=== PATIENT | male | born 2005 | race Native Hawaiian/Other Pacific Islander ===

== ENCOUNTER 2024-04-25 10:34 | Emergency (ER) | payer OTHER ==
[~2024-04-25] VITALS: Ht 170.2 cm; Wt 74.1 kg
[2024-04-25 10:35] VITALS: BP 132/81; TEMP 98.3; O2SAT 97
[2024-04-25] MEDS ORDERED: CEPH500T PO (11:05)
[2024-04-25 11:55] LABS: BASO % 0.6 % (0.0-1.0); EOS # 0.2 10^3/uL (0.0-0.5); EOS % 2.1 % (0.0-3.0); HEMATOCRIT 42.6 % (42.0-52.0); HEMOGLOBIN 14.6 g/dl (13.5-17.5); LYMPH # 1.6 10^3/uL (1.5-5.0); LYMPH % 22.2 % (24.0-44.0); MEAN CORPUSCULAR HGB CONC 34.3 g/dl (32.0-36.5); MEAN CORPUSCULAR VOLUME 90.4 fl (80.0-96.0); MONO # 0.5 10^3/uL (0.0-0.8); MONO % 7.3 % (2.0-8.0); NEUTROPHILS # 4.8 10^3/uL (1.5-8.5); NEUTROPHILS % 67.4 % (36.0-66.0); PLATELET COUNT, AUTOMATED 293 10^3/uL (150-450); RED BLOOD COUNT 4.71 10^6/uL (4.30-6.10); WHITE BLOOD COUNT 7.1 10^3/uL (4.0-10.0)
[2024-04-25 12:06] LABS: INR 1.05; PROTHROMBIN TIME 13.4 SECONDS (12.5-14.5)
[2024-04-25 12:19] LABS: CK-MB VALUE MASS < 1.0 NG/ML (<3.6)
[2024-04-25 12:20] LABS: LIPASE 36 U/L (12-53)
[2024-04-25 12:22] LABS: ALBUMIN 4.1 G/DL (3.2-5.2); ALKALINE PHOSPHATASE 82 U/L (46-116); ALT/SGPT 16 U/L (7.0-40); AST/SGOT 13 U/L (<34); BILIRUBIN,DIRECT 0.2 MG/DL (<0.4); BILIRUBIN,TOTAL 0.8 MG/DL (0.3-1.2); BLOOD UREA NITROGEN 13 MG/DL (9-23); CALCIUM LEVEL 9.3 MG/DL (8.5-10.1); CARBON DIOXIDE LEVEL 30 MMOL/L (20-31); CHLORIDE LEVEL 105 MMOL/L (98-107); CREATININE FOR GFR 1.01 MG/DL (0.70-1.30); GLOMERULAR FILTRATION RATE > 60.0 (>60); GLUCOSE, FASTING 87 MG/DL (60-100); POTASSIUM SERUM 4.5 MMOL/L (3.5-5.1); SODIUM LEVEL 139 MMOL/L (136-145)
[2024-04-25 12:23] LABS: CPK CREATINE PHOSPHOKINASE 148 U/L (46-171); MB/CK RELATIVE INDEX 0.67 (< OR =4)
[2024-04-25 12:48] LABS: D-DIMER QUANT < 0.27 ug/mL (<0.5)
[2024-04-25] MEDS ORDERED: IBUP80TA PO (13:05)
[2024-04-25] MEDS: KETOROLAC 30 MG/ML 1ML VIAL IV ONE (13:13)
== END 2024-04-25 13:13 | disposition home or self-care (01) ==
LOC: M ED 11:38
DX: R07.9 Chest pain, unspecified (principal); F10.10 Alcohol abuse, uncomplicated; Z87.891 Personal history of nicotine dependence; Z88.1 Allergy status to other antibiotic agents; Z88.2 Allergy status to sulfonamides; Z88.8 Allergy status to other drugs, medicaments and biological substances; Z79.1 Long term (current) use of non-steroidal anti-inflammatories (NSAID); Z79.2 Long term (current) use of antibiotics
CPT/HCPCS: 71046; 80048; 80076; 82550; 82553; 83690; 84484; 85025; 85379; 85610; 93005; 93041; 94760; 96374; 99284; J1885

== ENCOUNTER 2024-05-11 11:31 | Emergency (ER) | payer OTHER ==
[~2024-05-11] VITALS: Ht 170.2 cm; Wt 73.2 kg
[~2024-05-11 11:31] MED LIST: CEPH500T PO; IBUP80TA PO
[2024-05-11] MEDS: ASPIRIN 81MG CHEW TABLET PO ONE (12:21)
[2024-05-11] MEDS: NS 1,000 ML IV ONE (12:22)
[2024-05-11 12:42] LABS: BASO % 0.8 % (0.0-1.0); EOS # 0.2 10^3/uL (0.0-0.5); EOS % 3.7 % (0.0-3.0); HEMATOCRIT 42.1 % (42.0-52.0); HEMOGLOBIN 14.6 g/dl (13.5-17.5); LYMPH # 1.4 10^3/uL (1.5-5.0); MEAN CORPUSCULAR HGB CONC 34.7 g/dl (32.0-36.5); MEAN CORPUSCULAR VOLUME 89.4 fl (80.0-96.0); MONO # 0.6 10^3/uL (0.0-0.8); MONO % 11.1 % (2.0-8.0); NEUTROPHILS # 2.9 10^3/uL (1.5-8.5); NEUTROPHILS % 57.2 % (36.0-66.0); PLATELET COUNT, AUTOMATED 332 10^3/uL (150-450); RED BLOOD COUNT 4.71 10^6/uL (4.30-6.10); WHITE BLOOD COUNT 5.1 10^3/uL (4.0-10.0)
[2024-05-11 12:55] LABS: D-DIMER QUANT < 0.27 ug/mL (<0.5); INR 1.06; PARTIAL THROMBOPLASTIN TIME 29.7 SECONDS (24.8-34.2); PROTHROMBIN TIME 13.5 SECONDS (12.5-14.5)
[2024-05-11 13:08] LABS: C REACTIVE PROTEIN QUANTITATIV < 0.40 MG/DL (<1.0); LIPASE 38 U/L (12-53)
[2024-05-11 13:10] LABS: ALKALINE PHOSPHATASE 73 U/L (46-116); ALT/SGPT 15 U/L (7.0-40); AST/SGOT 26 U/L (<34); BILIRUBIN,DIRECT 0.1 MG/DL (<0.4); BILIRUBIN,TOTAL 0.5 MG/DL (0.3-1.2); BLOOD UREA NITROGEN 10 MG/DL (9-23); CALCIUM LEVEL 8.9 MG/DL (8.5-10.1); CARBON DIOXIDE LEVEL 27 MMOL/L (20-31); CHLORIDE LEVEL 106 MMOL/L (98-107); CREATININE FOR GFR 0.89 MG/DL (0.70-1.30); GLOMERULAR FILTRATION RATE > 60.0 (>60); GLUCOSE, FASTING 109 MG/DL (60-100); POTASSIUM SERUM 4.4 MMOL/L (3.5-5.1); SODIUM LEVEL 139 MMOL/L (136-145); THYROID STIMULATING HORMONE 1.228 uIU/ML (0.55-4.78); TOTAL PROTEIN 7.1 G/DL (5.7-8.2)
[2024-05-11 13:11] LABS: FREE T4 1.33 NG/DL (0.89-1.76)
[2024-05-11 13:13] LABS: CPK CREATINE PHOSPHOKINASE 588 U/L (46-171); MB/CK RELATIVE INDEX 0.17 (< OR =4)
[2024-05-11 15:03] LABS: CK-MB VALUE MASS < 1.0 NG/ML (<3.6)
[2024-05-11 15:05] LABS: CPK CREATINE PHOSPHOKINASE 487 U/L (46-171)
[2024-05-11 15:41] VITALS: BP 131/76; TEMP 97.5; O2SAT 98
== END 2024-05-11 15:43 | disposition home or self-care (01) ==
LOC: M ED 11:31
DX: R07.89 Other chest pain (principal); I45.19 Other right bundle-branch block; F17.290 Nicotine dependence, other tobacco product, uncomplicated; F10.10 Alcohol abuse, uncomplicated; Z88.1 Allergy status to other antibiotic agents; Z88.2 Allergy status to sulfonamides; Z88.8 Allergy status to other drugs, medicaments and biological substances; Z91.018 Allergy to other foods; Z79.1 Long term (current) use of non-steroidal anti-inflammatories (NSAID); Z79.2 Long term (current) use of antibiotics

== ENCOUNTER 2025-05-06 12:50 | Emergency (ER) | payer OTHER ==
[~2025-05-06] VITALS: Ht 175.3 cm; Wt 78.7 kg
[2025-05-06 15:00] VITALS: BP 132/73; TEMP 97; O2SAT 96
== END 2025-05-06 15:08 | disposition home or self-care (01) ==
LOC: M ED 12:50
DX: R07.89 Other chest pain (principal); R00.0 Tachycardia, unspecified; I45.10 Unspecified right bundle-branch block; Z88.1 Allergy status to other antibiotic agents; Z88.2 Allergy status to sulfonamides; Z88.8 Allergy status to other drugs, medicaments and biological substances; Z91.018 Allergy to other foods

== ENCOUNTER → 2025-06-13 | Outpatient (CLI) | payer OTHER | LOC: M RAD 10:42 | PROVIDERS: ATTEND Physician Assistant | DX: R06.00 Dyspnea, unspecified (principal) ==

== ENCOUNTER 2025-07-10 15:17 | Emergency (ER) | payer OTHER ==
[~2025-07-10] VITALS: Ht 170.2 cm; Wt 82.1 kg
[2025-07-10] MEDS ORDERED: NAPR-885 PO (15:32)
[2025-07-10 15:50] LABS: BASO # 0.0 10^3/uL (0.0-0.2); BASO % 0.4 % (0.0-1.0); EOS # 0.3 10^3/uL (0.0-0.5); EOS % 3.3 % (0.0-3.0); LYMPH # 1.5 10^3/uL (1.5-5.0); LYMPH % 19.3 % (24.0-44.0); MONO # 1.0 10^3/uL (0.0-0.8); MONO % 12.2 % (2.0-8.0); NEUTROPHILS # 5.1 10^3/uL (1.5-8.5); NEUTROPHILS % 64.5 % (36.0-66.0); PLATELET COUNT, AUTOMATED 315 10^3/uL (150-450)
[2025-07-10 16:11] LABS: CK-MB VALUE MASS 1.4 NG/ML (<3.6)
[2025-07-10 16:13] LABS: ALT/SGPT 20 U/L (7.0-40); AST/SGOT 20 U/L (<34); CALCIUM LEVEL 8.4 MG/DL (8.5-10.1); CARBON DIOXIDE LEVEL 28 MMOL/L (20-31); CHLORIDE LEVEL 101 MMOL/L (98-107); CREATININE FOR GFR 1.22 MG/DL (0.70-1.30); GLOMERULAR FILTRATION RATE 86.0 (>60); POTASSIUM SERUM 3.9 MMOL/L (3.5-5.1); SODIUM LEVEL 135 MMOL/L (136-145)
[2025-07-10 16:15] LABS: CPK CREATINE PHOSPHOKINASE 263 U/L (46-171); MB/CK RELATIVE INDEX 0.53 (< OR =4)
[2025-07-10 17:45] VITALS: BP 137/78; O2SAT 98
[2025-07-10 18:18] LABS: CK-MB VALUE MASS 1.0 NG/ML (<3.6)
[2025-07-10 18:24] LABS: CPK CREATINE PHOSPHOKINASE 258 U/L (46-171); MB/CK RELATIVE INDEX 0.38 (< OR =4)
[2025-07-10 18:44] VITALS: TEMP 97.8
== END 2025-07-10 19:09 | disposition home or self-care (01) ==
LOC: M ED 15:17
DX: R07.89 Other chest pain (principal); I45.10 Unspecified right bundle-branch block; F17.290 Nicotine dependence, other tobacco product, uncomplicated; F10.10 Alcohol abuse, uncomplicated; Z88.1 Allergy status to other antibiotic agents; Z88.2 Allergy status to sulfonamides; Z88.8 Allergy status to other drugs, medicaments and biological substances; Z91.018 Allergy to other foods; Z79.899 Other long term (current) drug therapy

== ENCOUNTER → 2025-07-29 | Outpatient (CLI) | payer OTHER ==
[~2025-07-29] MED LIST changes: +METHACHOLINE KIT (6 VIAL.NEB PREMIX) INH ONE; +NAPR-885 PO
== END ==
LOC: M CARPUL 13:12
PROVIDERS: ATTEND Physician Assistant
DX: R06.00 Dyspnea, unspecified (principal)
CPT/HCPCS: 94070; 95070; J7674

== ENCOUNTER 2025-08-21 16:26 | Observation (INO) | payer OTHER ==
[~2025-08-21] VITALS: Ht 170.2 cm; Wt 81.4 kg
[~2025-08-21 16:26] MED LIST changes: -METHACHOLINE KIT (6 VIAL.NEB PREMIX) INH ONE
[2025-08-21] MEDS ORDERED: OMEP40CA5 PO (16:35)
[2025-08-21] MEDS ORDERED: PROA1AER2 INH (16:35)
[2025-08-21 19:45] LABS: BASO # 0.1 10^3/uL (0.0-0.2); BASO % 0.5 % (0.0-1.0); EOS # 0.1 10^3/uL (0.0-0.5); EOS % 0.6 % (0.0-3.0); LYMPH # 1.7 10^3/uL (1.5-5.0); LYMPH % 15.5 % (24.0-44.0); MONO # 0.6 10^3/uL (0.0-0.8); MONO % 5.8 % (2.0-8.0); NEUTROPHILS # 8.5 10^3/uL (1.5-8.5); NEUTROPHILS % 77.2 % (36.0-66.0); PLATELET COUNT, AUTOMATED 333 10^3/uL (150-450)
[2025-08-21 20:10] LABS: CALCIUM LEVEL 8.7 MG/DL (8.5-10.1); CARBON DIOXIDE LEVEL 26 MMOL/L (20-31); CHLORIDE LEVEL 102 MMOL/L (98-107); CK-MB VALUE MASS 1.4 NG/ML (<3.6); CREATININE FOR GFR 1.06 MG/DL (0.70-1.30); GLOMERULAR FILTRATION RATE > 90.0 (>60); MAGNESIUM LEVEL 2.0 MG/DL (1.8-2.4); POTASSIUM SERUM 3.8 MMOL/L (3.5-5.1); SODIUM LEVEL 139 MMOL/L (136-145)
[2025-08-21 20:13] LABS: FREE T4 1.29 NG/DL (0.89-1.76)
[2025-08-21 20:15] LABS: CPK CREATINE PHOSPHOKINASE 216 U/L (46-171); MB/CK RELATIVE INDEX 0.64 (< OR =4)
[2025-08-21] MEDS ORDERED: ISOVUE-370 76% 100 ML VIAL As Ordered ONE (20:29)
[2025-08-21 21:03] LABS: CK-MB VALUE MASS 1.1 NG/ML (<3.6)
[2025-08-21 21:05] LABS: CPK CREATINE PHOSPHOKINASE 199.0 U/L (46-171); MB/CK RELATIVE INDEX 0.55 (< OR =4)
[2025-08-21] MEDS ORDERED: ACETAMINOPHEN 325 MG TAB PO PRN (21:55)
[2025-08-21] MEDS ORDERED: ALBUTEROL 90 MCG/ACT 8 GM HFA INHALER INH PRN (21:55)
[2025-08-21] MEDS: OMEPRAZOLE 20MG CAP PO SCH (22:39)
[2025-08-21 23:00] VITALS: O2SAT 97
[2025-08-21] MEDS ORDERED: HOME MED LIST COMPLETE! XX SCH (23:05)
[2025-08-21 23:13] VITALS: BP 133/79; TEMP 97.8; O2SAT 96
[2025-08-21 23:23] LABS: CK-MB VALUE MASS 1.4 NG/ML (<3.6)
[2025-08-21 23:24] LABS: CPK CREATINE PHOSPHOKINASE 204.0 U/L (46-171); MB/CK RELATIVE INDEX 0.68 (< OR =4)
[2025-08-22] VITALS (24 sets, daily range): BP systolic 95–137; BP diastolic 52–77; TEMP 97–98.2; O2SAT 94–98
[2025-08-22] MEDS: ALBUTEROL 90 MCG/ACT 8 GM HFA INHALER INH SCH
[2025-08-22 06:26] LABS: ALT/SGPT 16 U/L (7.0-40); AST/SGOT 19 U/L (<34); CALCIUM LEVEL 8.7 MG/DL (8.5-10.1); CARBON DIOXIDE LEVEL 26 MMOL/L (20-31); CHLORIDE LEVEL 104 MMOL/L (98-107); CK-MB VALUE MASS 1.3 NG/ML (<3.6); CPK CREATINE PHOSPHOKINASE 191 U/L (46-171); CREATININE FOR GFR 1.05 MG/DL (0.70-1.30); GLOMERULAR FILTRATION RATE > 90.0 (>60); MB/CK RELATIVE INDEX 0.68 (< OR =4); POTASSIUM SERUM 3.8 MMOL/L (3.5-5.1); SODIUM LEVEL 141 MMOL/L (136-145)
[2025-08-22 07:56] LABS: BASO # 0.0 10^3/uL (0.0-0.2); BASO % 0.6 % (0.0-1.0); EOS # 0.3 10^3/uL (0.0-0.5); EOS % 4.5 % (0.0-3.0); LYMPH # 2.0 10^3/uL (1.5-5.0); LYMPH % 29.6 % (24.0-44.0); MONO # 0.7 10^3/uL (0.0-0.8); MONO % 10.0 % (2.0-8.0); NEUTROPHILS # 3.6 10^3/uL (1.5-8.5); NEUTROPHILS % 54.8 % (36.0-66.0); PLATELET COUNT, AUTOMATED 319 10^3/uL (150-450)
[2025-08-22 08:08] LABS: CHOLESTEROL LEVEL 156 MG/DL (<200); CHOLESTEROL RISK RATIO 3.69 (<5); LDL CHOLESTEROL 96.2 MG/DL (<100); NON-HDL-C 113.8 MG/DL; TRIGLYCERIDES LEVEL 88 MG/DL (<150)
[2025-08-22 08:33] LABS: ESTIMATED AVERAGE GLUCOSE 88.0 MG/DL (60-110)
[2025-08-22] MEDS: SYMBICORT 160/4.5MCG INHALER 6GM INH SCH (12:06)
[2025-08-22] MEDS ORDERED: SYMB16INH INH (13:53)
[2025-08-23 03:36] VITALS: BP 121/60; TEMP 97.3; O2SAT 96
[2025-08-23 07:54] VITALS: BP 126/74; TEMP 97.6; O2SAT 98
== END 2025-08-23 08:35 | disposition home or self-care (01) ==
LOC: M ED 16:26 → M ED INP 21:53 → M PCU 23:25
PROVIDERS: ADMIT Internal Medicine Nephrology; ATTEND Internal Medicine Nephrology
DX: R07.89 Other chest pain (principal); R55 Syncope and collapse; R00.2 Palpitations; J45.901 Unspecified asthma with (acute) exacerbation; R79.89 Other specified abnormal findings of blood chemistry; I45.10 Unspecified right bundle-branch block; Z79.899 Other long term (current) drug therapy; Z88.0 Allergy status to penicillin; Z88.2 Allergy status to sulfonamides; Z88.1 Allergy status to other antibiotic agents; F17.200 Nicotine dependence, unspecified, uncomplicated
CPT/HCPCS: 36415; 70450; 71275; 80048; 80053; 80061; 82550; 82553; 83036; 83735; 84439; 84443; 84484; 85025; 93005; 93306; 93880; 94640; 99285; Q9967

== ENCOUNTER → 2025-08-23 | Outpatient (CLI) | payer OTHER ==
[~2025-08-23] MED LIST changes: +OMEP40CA5 PO; +PROA1AER2 INH; +SYMB16INH INH
== END ==
LOC: M EKG 08:58
PROVIDERS: ATTEND Internal Medicine Nephrology
DX: R55 Syncope and collapse (principal)